=== PATIENT | male | born 1990 | race Caucasian/White ===

== ENCOUNTER 2019-10-21 12:54 | Inpatient (IN) | payer MEDICAID, OTHER ==
[~2019-10-21] VITALS: Ht 170.2 cm; Wt 61.7 kg
[~2019-10-21 12:54] MED LIST: HUMSLIDE SUBQ; INSU100S22 SUBQ
--- NOTE | 2019-10-21 12:54 | NUR ---
Patient BIBA BLS, transferred to bed 10. RN evaluating patient at bedside.
[2019-10-21 13:03] VITALS: BP 131/78
--- NOTE | 2019-10-21 13:15 | NUR ---
PT TO ED VIA EMS FOR C/O GENERALIZED WEAKNESS, CHILLS, AND ABDOMINAL DISTENTION. ABD IS LARGE, FIRM, AND TENDER TO TOUCH. BOWEL SOUNDS ACTIVE X 4. SKIN IS WARM TO TOUCH. DENIES NAUSEA AND VOMITTING. MD MADE AWARE OF PATIENT STATUS.
--- NOTE | 2019-10-21 13:16 | NUR ---
PMH- LIVER CIRRHOSIS, DM, LEGALLY BLIND BOTH EYES PER PATIENT Addendum: 10/21/19 at 1350 by ARABELLA RIGHT EYE BLINDNESS
--- NOTE | 2019-10-21 13:17 | NUR ---
PT RECIEVED PARACETNESIS X LAST THURSDAY AND APPROX 2 L REMOVED PER SISTER. RECEIVES PROCEDURE EVERY 3-4 WEEKS
--- NOTE | 2019-10-21 13:29 | NUR ---
REPORT TO GERARDO SALDIVAR FOR CONTINUATION OF CARE.
[2019-10-21] MEDS ORDERED: ACETAMINOPHEN 325 MG TAB PO ONE (13:30)
[2019-10-21] MEDS ORDERED: PIPERACILLIN/TAZOBACTAM 3.375 GM in DEXTROSE 5% 50 ML IV ONE (13:30)
--- NOTE | 2019-10-21 13:30 | NUR ---
HRS 130 AT THIS TIME, RR 43
--- NOTE | 2019-10-21 13:33 | NUR ---
XRAY AT BEDSIDE
[2019-10-21] MEDS ORDERED: DEXTROSE 5% 50 ML IV ONE (13:36)
[2019-10-21] MEDS ORDERED: PIPERACILLIN/TAZOBACTAM 3.375 GM VIAL IV ONE (13:36)
--- NOTE | 2019-10-21 13:45 | NUR ---
URINE COLLECTED Addendum: 10/21/19 at 1347 by MEDAD URINE COLORED BROWN
--- NOTE | 2019-10-21 13:46 | NUR ---
LAB AT BEDSIDE
--- NOTE | 2019-10-21 13:51 | NUR ---
EMT AT BEDSIDE FOR EKG
--- NOTE | 2019-10-21 14:03 | NUR ---
ZOSYN IVBP STARTED
[2019-10-21 14:05] LABS: HEMATOCRIT 24.2 % (36-52); HEMOGLOBIN 8.1 g/dL (12.0-18.0); MEAN CORPUSCULAR HEMOGLOBIN 33 pg (27-31); MEAN CORPUSCULAR HGB CONC 33 g/dL (33-37); MEAN CORPUSCULAR VOLUME 98.9 fL (80-94); PLATELET COUNT (AUTO) 100 K/uL (140-450); RED BLOOD CELL COUNT(AUTO) 2.45 MIL/uL (4.20-6.10); RED CELL DISTRIBUTION WIDTH 14.6 % (11.6-13.7); WHITE BLOOD COUNT (AUTO) 6.6 K/uL (4.8-10.8)
[2019-10-21] MEDS ORDERED: VANCOMYCIN 1,000 MG in DEXTROSE 5% 250 ML IV ONE (14:05)
[2019-10-21 14:06] LABS: APPEARANCE,URINE SL CLOUDY (CLEAR); BILIRUBIN,URINE 3+ (NEGATIVE); BLOOD, URINE 3+ (NEGATIVE); COLOR,URINE DARK YELLOW (YELLOW); LEUKOCYTE ESTERASE ,URINE NEGATIVE (NEGATIVE); NITRITE, URINE POSITIVE (NEGATIVE); UGLUCOSE TRACE (NEGATIVE)
[2019-10-21 14:20] LABS: PROTHROMBIN TIME 12.2 secs (10.8-13.4)
--- NOTE | 2019-10-21 14:24 | NUR ---
PT FAMILY AT BEDSIDE.
[2019-10-21 14:27] LABS: CREATINE KINASE MB 0.3 ng/mL (0-3.6)
[2019-10-21] MEDS ORDERED: VANCOMYCIN 1,000 MG VIAL ONE (14:29)
[2019-10-21 14:31] LABS: RBC,URINE 11-20 (MOD) /HPF (0-5); WBC,URINE NONE SEEN /HPF (0-5)
[2019-10-21 14:32] LABS: FINE GRANULAR CASTS,URINE 0-10 /LPF (None Seen)
[2019-10-21 14:40] LABS: EOSINOPHILS % (MANUAL) 2 % (0-4); LYMPHOCYTES % (MANUAL) 1 % (20-46); MONOCYTES % (MANUAL) 1 % (5-12)
--- NOTE | 2019-10-21 14:43 | NUR ---
VANCO IVPB STARTED
[2019-10-21 14:44] LABS: ANION GAP 10.8 (8-16); POTASSIUM 3.8 mmol/L (3.5-5.1)
[2019-10-21 14:45] LABS: CREATININE 0.7 mg/dL (0.7-1.3); TOTAL BILIRUBIN 2.6 mg/dL (0.0-1.0)
[2019-10-21 14:46] LABS: ALBUMIN 1.4 g/dL (3.4-5.0)
--- NOTE | 2019-10-21 14:47 | NUR ---
Dr. Lentz is evaluating the patient at bedside.
--- NOTE | 2019-10-21 14:48 | NUR ---
ORAL TEMP 100.3 ,DR ARAUJO AT BEDSIDE.
--- NOTE | 2019-10-21 15:02 | NUR ---
Patient taken to CT scan via gurney by [facility].
--- NOTE | 2019-10-21 15:05 | NUR ---
PT WENT FOR CTSCAN VIA [employer].
--- NOTE | 2019-10-21 15:13 | NUR ---
Patient returned from CT scan. RN re-evaluating patient at bedside.
--- NOTE | 2019-10-21 15:15 | NUR ---
pt back from [facility] via [employer].
--- NOTE | 2019-10-21 15:58 | NUR ---
NADRS .PAIN LEVEL AT 4/10.
[2019-10-21] MEDS ORDERED: ONDANSETRON 4 MG/2 ML VIAL IM/IVP PRN (16:30)
[2019-10-21] MEDS ORDERED: HYDROcodone/APAP 5/325 MG 1 TAB TAB PO PRN (16:30)
[2019-10-21] MEDS ORDERED: DOCUSATE SODIUM 100 MG GELCAP PO PRN (16:30)
[2019-10-21] MEDS ORDERED: ACETAMINOPHEN 325 MG TAB PO PRN (16:30)
[2019-10-21] MEDS ORDERED: MORPHINE SULFATE 2 MG/ML SYR IVP PRN (16:30)
[2019-10-21] MEDS ORDERED: LORazepam 2 MG/ML VIAL IM/IVP PRN (16:30)
--- NOTE | 2019-10-21 16:46 | NUR ---
Yady march in EDM - 10/21/19 at [address] Gomez and tech at bedside for central line insertion.
--- NOTE | 2019-10-21 16:57 | NUR ---
pt nsr, afebrile at this time. pt alert and awake, family bedside
[2019-10-21 17:20] LABS: LIPASE 161 U/L (73-393); MAGNESIUM 1.5 mg/dL (1.8-2.4); PHOSPHORUS 2.4 mg/dL (2.5-4.9)
--- NOTE | 2019-10-21 17:40 | NUR ---
Patient will be admitted to care of DR URIARTE. Admited to TELE. Will go to room 108B. Belongings list completed. Report to PRINCESS CARRILLO. FAMILY TRANSPORTED WITH PT COVERED BELONGINGS LIST WITH PRINCESS CARRILLO
--- NOTE | 2019-10-21 17:40 | NUR ---
RECEIVED PATIENT FROM BRITTNI SALDIVAR RN VIA [email or web address]. PATIENT IS AWAKE AND ALERT. PATIENT IS LEGALLY BLIND. PER SISTER, PATIENT CAN SEE ONLY SHADOWS IN LEFT EYE. NPO EXCEPT MEDS. SKIN IS INTACT. IV ON LEFT FOREARM 20 G, SALINE LOCK. LOWER LEG SLIGHT EDEMA PRESENT. BP 114/69, RESP 18 EVEN AND UNLABORED, ON ROOM AIR. TEMP 98.6, ORAL. O2SAT 97%, HR 99 BMP. PATIENT DENIES ANY ABDOMINAL PAIN. AMBULATORY WITH GUIDANCE/ASSIST. FAMILY AT BEDSIDE. CALL LIGHT IS WITHIN REACH. BED IN LOW POSITION. BED ALARM IN PLACE.
[2019-10-21] MEDS ORDERED: LACT10SO1 PO (17:51)
[2019-10-21] MEDS ORDERED: FURO-572 PO (17:51)
[2019-10-21] MEDS ORDERED: MAGN200T5 PO (17:51)
[2019-10-21 17:56] LABS: BARBITURATE, URINE NEG. ng/ml (NEG <=200); BENZODIAZEPINE, URINE NEG. ng/mL (NEG <=200); CANNABINOID, URINE NEG. ng/mL (NEG <=50); COCAINE, URINE NEG. ng/mL (NEG <=300); OPIATE, URINE NEG. ng/mL (NEG <=2000); PHENCYCLIDINE SCREEN,URINE NEG. ng/mL (NEG <=25)
[2019-10-21 17:58] LABS: IRON, SERUM 21 ug/dl (50-175); TOTAL IRON BINDING CAPACITY 103 ug/dl (250-450)
[2019-10-21] MEDS ORDERED: DEXTROSE 50% 50 ML SYR IVP PRN (18:30)
--- NOTE | 2019-10-21 18:44 | NUR ---
ADMINISTERED MAG SULFATE AND NEUTRA-PHOS. EXPLAINED TO PATIENT INDICATIONS AND SIDE EFFECTS. VERBALIZED UNDERSTANDING. WILL CONTINUE TO MONITOR.
[2019-10-21] MEDS ORDERED: SODIUM PHOS / POTASSIUM PHOS 1 PKT PDR PO SCH (18:45)
[2019-10-21] MEDS ORDERED: LACTULOSE 20 GM/30 ML UDC PO SCH (19:00)
[2019-10-21] MEDS ORDERED: MAG SULF 2000 MG/WATER PREMIX 50 ML IV SCH (19:00)
[2019-10-21 19:15] VITALS: BP 100/60
--- NOTE | 2019-10-21 19:15 | NUR ---
RECIEVED PT [id number] , NID , WITH LARGE BLOATED ADB. , WITH PITTING EDEMA ON LEFT LEG = 2 , ON RA , WITH VERY MILD ABDL. PAIN THIS TIME , ON SL INTACT AND PATENT , ATE FOOD TOLERATED .MOTHER AT BEDSIDE , USES URINAL . PT IS LEGALLY BLIND ON RIGHT EYE - ON FALL/ SAFETY PRECAUTION PROTOCOL - CALL LIGHT WITHIN REACH - BED ALARM ON . PLAN OF CARE DISCUSSED AND VERBALIZED UNDERSTANDING . WILL CONT. TO MONITOR.
--- NOTE | 2019-10-21 19:15 | NUR ---
ENDORSED PATIENT TO FUSION ANALYST NURSE FOR CONTINUITY OF CARE. PATIENT IS IN STABLE CONDITION.
[2019-10-21] MEDS: BLOOD GLUCOSE MONITORING 1 DEV DEV FS SCH (21:27)
[2019-10-21] MEDS: LACTULOSE 20 GM/30 ML UDC PO SCH (21:27)
[2019-10-21] MEDS: INSULIN LISPRO SLIDING SCALE 100 UNITS/ML VIAL SUBQ PRN (21:29)
--- NOTE | 2019-10-21 21:35 | NUR ---
S/E BY DR. SANTAMARIA - HE ASSESED THE EDEMA OF THE LEFT LEG- HE SAID THE SCD WILL AGGRAVATES THE EDEMA IF IT IS PUT ON THE LEG - PENDING THE APPLICATION OF THE SCD.
[2019-10-21] MEDS ORDERED: VANCOMYCIN PER PHARMACY MC PRN (22:20)
--- NOTE | 2019-10-21 22:37 | NUR ---
PLT 100 - DUE HEPARIN SQ 5,000 WILL BE GIVEN ORDERED BY DR. SANTAMARIA. HE SAID GIVE HEPARIN SQ .
[2019-10-22] VITALS: BP 100/63
--- NOTE | 2019-10-22 | NUR ---
MADE ROUNDS - NO SIGNS OF ANY ACUTE DISTRESS NOTED AT THIS TIME - CALL LIGHT WITHIN REACH.
[2019-10-22] MEDS: PIPERACILLIN/TAZOBACTAM 3.375 GM in DEXTROSE 5% 50 ML IV SCH ×2 (00:19→06:12)
--- NOTE | 2019-10-22 02:00 | NUR ---
SLEEPING - CHEST RISE AND FALL EQUALLY.
[2019-10-22 04:00] VITALS: BP 117/72
--- NOTE | 2019-10-22 04:00 | NUR ---
MADE ROUNDS, NO S/SX OF ACUTE DISTRESS NOTED AT THIS TIME . CALL LIGHT WITHIN REACH.
--- NOTE | 2019-10-22 06:00 | NUR ---
MADE ROUNDS - HAD BOWEL MOVEMENT - 2X SEMI SOLID - NO COMPLAIN MADE AT THIS TIME . CALL LIGHT WITHIN REACH.
[2019-10-22] MEDS: BLOOD GLUCOSE MONITORING 1 DEV DEV FS SCH ×4 (06:12→21:00)
[2019-10-22 06:27] LABS: EOSINOPHILS # (AUTO) 0.2 K/uL (0-0.4); EOSINOPHILS % (AUTO) 4.3 % (0.0-4.0); HEMATOCRIT 22.6 % (36-52); HEMOGLOBIN 7.6 g/dL (12.0-18.0); LYMPHOCYTES # (AUTO) 0.4 K/uL (2.0-11.5); LYMPHOCYTES % (AUTO) 8.7 % (20.5-51.1); MEAN CORPUSCULAR HEMOGLOBIN 33 pg (27-31); MEAN CORPUSCULAR HGB CONC 34 g/dL (33-37); MEAN CORPUSCULAR VOLUME 99.1 fL (80-94); MONOCYTES # (AUTO) 0.3 K/uL (0.8-1.0); MONOCYTES % (AUTO) 6.4 % (1.7-9.3); NEUTROPHILS # (AUTO) 3.9 K/uL (1.8-7.7); NEUTROPHILS % (AUTO) 79.6 % (42.2-75.2); PLATELET COUNT (AUTO) 83 K/uL (140-450); RED BLOOD CELL COUNT(AUTO) 2.29 MIL/uL (4.20-6.10); RED CELL DISTRIBUTION WIDTH 14.3 % (11.6-13.7); WHITE BLOOD COUNT (AUTO) 4.8 K/uL (4.8-10.8)
[2019-10-22 06:36] LABS: ANION GAP 12.3 (8-16); CARBON DIOXIDE 23.3 mmol/L (21-32); CREATININE 0.9 mg/dL (0.7-1.3); POTASSIUM 3.6 mmol/L (3.5-5.1)
[2019-10-22 07:05] LABS: MAGNESIUM 1.8 mg/dL (1.8-2.4); PHOSPHORUS 2.6 mg/dL (2.5-4.9)
--- NOTE | 2019-10-22 07:10 | NUR ---
ENDORSED TO AM SHIFT FOR CONT. OF CARE , WITH STABLE CONDITION.
--- NOTE | 2019-10-22 07:11 | NUR ---
RECEIVED REPORT FROM JIG BUILDER NURSE FOR CONTINUITY OF CARE. PT IN STABLE CONDITION. RESPIRATIONS EVEN AND UNLABORED, ROOM AIR. IV INTACT AND PATENT. SAFETY MEASURES IN PLACE. BED IN LOW POSITION. BED ALARM ON. CALL LIGHT AT BEDSIDE. WILL CONTINUE TO MONITOR.
[2019-10-22 08:00] VITALS: BP 112/77
[2019-10-22] MEDS: LACTULOSE 20 GM/30 ML UDC PO SCH ×2 (09:00→23:14)
[2019-10-22] MEDS ORDERED: ALBUTEROL SULFATE/IPRATROPIU 3 ML SOL IH PRN (09:20)
[2019-10-22] MEDS: SPIRONOLACTONE 50 MG TAB PO SCH (09:43)
--- NOTE | 2019-10-22 09:43 | NUR ---
GAVE ORDERED DUE MEDICATIONS AT THIS TIME. PT TOLERATED WELL. BED IN LOW POSITION. BED ALARM ON. CALL LIGHT AT BEDSIDE. WILL CONTINUE TO MONITOR.
[2019-10-22] MEDS ORDERED: VANCOMYCIN 1,000 MG in DEXTROSE 5% 250 ML IV SCH (10:00)
--- NOTE | 2019-10-22 11:33 | NUR ---
PT TALKING WITH FAMILY AT BEDSIDE. PT IN STABLE CONDITION. BED IN LOW POSITION. BED ALARM ON. CALL LIGHT AT BEDSIDE. WILL CONTINUE TO MONITOR.
[2019-10-22] MEDS ORDERED: PROP10TA28 PO (11:35)
[2019-10-22] MEDS ORDERED: URSO300C14 PO (11:35)
[2019-10-22] MEDS ORDERED: SPIR50TA PO (11:35)
[2019-10-22] MEDS ORDERED: FURO-570 PO (11:35)
[2019-10-22] MEDS ORDERED: OMEP20TC12 PO (11:35)
[2019-10-22] MEDS ORDERED: AZITHROMYCIN SUSP 200 MG/5 ML PO SCH (11:40)
[2019-10-22 12:00] VITALS: BP 109/63
--- NOTE | 2019-10-22 12:02 | NUR ---
WHITNEY BARRY AT BEDSIDE FOR ASSESSMENT. PT IN STABLE CONDITION. BED IN LOW POSITION. BED ALARM ON. CALL LIGHT AT BEDSIDE. WILL CONTINUE TO MONITOR.
[2019-10-22] MEDS ORDERED: INSU100S22 SUBQ (12:43)
--- NOTE | 2019-10-22 13:01 | NUR ---
FNS FOR DIET LEMON TORRES MARTINEZ SODA PER PT REQUEST.
[2019-10-22] MEDS ORDERED: AZITHROMYCIN 250 MG TAB PO SCH (13:30)
--- NOTE | 2019-10-22 14:02 | NUR ---
PT WATCHING TV IN STABLE CONDITION. PT IN STABLE CONDITION. BED IN LOW POSITION. BED ALARM ON. CALL LIGHT AT BEDSIDE. WILL CONTINUE TO MONITOR.
[2019-10-22 16:00] VITALS: BP 114/70
--- NOTE | 2019-10-22 16:03 | NUR ---
PT SLEEP AT THIS TIME. RESPIRATIONS EVEN AND UNLABORED. BED IN LOW POSITION. CALL LIGHT AT BEDSIDE.
--- NOTE | 2019-10-22 19:21 | NUR ---
GAVE REPORT TO PROSTHODONTIST/EDUCATOR NURSE FOR CONTINUITY OF CARE. PT IN STABLE CONDITION.
--- NOTE | 2019-10-22 19:22 | NUR ---
RECEIVED PT FROM DEBBIE CARRILLO PT IS AAOX4 LEGALLLY BLIND , ASCITIS, EDEMA ON BLE HL ON LEFT WRIST PATENT RELATIVE AT BE SIDE NOT PAIN INITIAL ASSESSMENT DONE
[2019-10-22 20:00] VITALS: BP 129/77
[2019-10-22] MEDS ORDERED: URSODIOL 300 MG CAP PO SCH (21:00)
--- NOTE | 2019-10-22 22:00 | NUR ---
BLOOD SUGAR TEST 207 COVERAGE WITH 4 UNITS SUBQ HUMALOG FOLLOW PROTOCOL
[2019-10-22] MEDS: FUROSEMIDE 20 MG/2 ML VIAL IVP SCH (22:16)
[2019-10-22] MEDS: URSODIOL 300 MG CAP PO SCH (22:19)
[2019-10-22] MEDS: PROPRANOLOL 20 MG TAB PO SCH (22:31)
[2019-10-22] MEDS: INSULIN LISPRO SLIDING SCALE 100 UNITS/ML VIAL SUBQ PRN (23:11)
[2019-10-23] VITALS: BP 110/70
--- NOTE | 2019-10-23 00:42 | NUR ---
PT SLEEPING QUIET NOT DISTRESS NOTED ON TELEMETRY SR
[2019-10-23 04:00] VITALS: BP 116/50
--- NOTE | 2019-10-23 04:00 | NUR ---
SPONGE BATH GIVEN LINEN CHANGED REPOSITIONED PT VOIDING WELL NOT DISTRESS NOTED ON TELMETRY SSR
[2019-10-23 05:40] LABS: BASOPHILS % (AUTO) 0.8 % (0.0-2.0); EOSINOPHILS # (AUTO) 0.3 K/uL (0-0.4); EOSINOPHILS % (AUTO) 5.1 % (0.0-4.0); HEMATOCRIT 24.1 % (36-52); HEMOGLOBIN 8.1 g/dL (12.0-18.0); LYMPHOCYTES # (AUTO) 0.5 K/uL (2.0-11.5); LYMPHOCYTES % (AUTO) 9.4 % (20.5-51.1); MEAN CORPUSCULAR HEMOGLOBIN 34 pg (27-31); MEAN CORPUSCULAR HGB CONC 34 g/dL (33-37); MEAN CORPUSCULAR VOLUME 99.6 fL (80-94); MONOCYTES # (AUTO) 0.4 K/uL (0.8-1.0); MONOCYTES % (AUTO) 8.5 % (1.7-9.3); NEUTROPHILS % (AUTO) 76.2 % (42.2-75.2); PLATELET COUNT (AUTO) 102 K/uL (140-450); RED BLOOD CELL COUNT(AUTO) 2.41 MIL/uL (4.20-6.10); RED CELL DISTRIBUTION WIDTH 14.6 % (11.6-13.7); WHITE BLOOD COUNT (AUTO) 5.3 K/uL (4.8-10.8)
--- NOTE | 2019-10-23 06:31 | NUR ---
PATIENT HAS BEEN SCREENED AND CATEGORIZED MODERATE NUTRITION RISK. PATIENT WILL BE SEEN WITHIN 3-5 DAYS OF ADMISSION. 10/24/19-10/26/19 SIDNEY MARIANO MS, RDN
[2019-10-23 06:48] LABS: MAGNESIUM 1.4 mg/dL (1.8-2.4); PHOSPHORUS 2.8 mg/dL (2.5-4.9)
[2019-10-23 07:18] LABS: ANION GAP 13.3 (8-16); CARBON DIOXIDE 22.1 mmol/L (21-32); CREATININE 0.8 mg/dL (0.7-1.3); POTASSIUM 3.4 mmol/L (3.5-5.1)
[2019-10-23] MEDS: BLOOD GLUCOSE MONITORING 1 DEV DEV FS SCH ×2 (07:37→12:09)
--- NOTE | 2019-10-23 07:39 | NUR ---
PT IS ENDORSED TO DEBBIE CARRILLO FOR CONTINUE OF CARE
--- NOTE | 2019-10-23 07:40 | NUR ---
RECEIVED REPORT FROM DRUM BARKER OPERATOR WILLIAM FOR CONTINUITY OF CARE. PT IN STABLE CONDITION. RESPIRATIONS EVEN AND UNLABORED, ROOM AIR. IV INTACT AND PATENT. SAFETY MEASURES IN PLACE. BED IN LOW POSITION. BED ALARM ON. CALL LIGHT AT BEDSIDE. WILL CONTINUE TO MONITOR.
[2019-10-23] MEDS ORDERED: POTASSIUM CHLORIDE 40 MEQ, LIDOCAINE MPF 1% 25 MG in NACL 0.9% 250 ML IV ONE (07:45)
[2019-10-23 08:00] VITALS: BP 115/69
[2019-10-23] MEDS ORDERED: MAG SULF 2000 MG/WATER PREMIX 50 ML IV ONE ×2 (08:00→11:25)
--- NOTE | 2019-10-23 08:40 | NUR ---
CONSENT SIGNED AND IV 20G RIGHT AC PLACED FOR CT ABD/PEL WITH CONTRAST. PT TOLERATED WELL.
[2019-10-23] MEDS: LACTULOSE 20 GM/30 ML UDC PO SCH (09:00)
[2019-10-23] MEDS ORDERED: PANTOPRAZOLE 40 MG INJ VIAL IVP SCH (09:00)
[2019-10-23] MEDS ORDERED: AZITHROMYCIN 250 MG TAB PO SCH (09:00)
--- NOTE | 2019-10-23 09:00 | NUR ---
PT OFF UNIT FOR CT ABD/PEL. PT IN STABLE CONDITION.
--- NOTE | 2019-10-23 09:30 | NUR ---
PT BACK ON UNIT AFTER ABD/PEL CT WITH CONTRAST. PT TOLERATED WELL. WILL CONTINUE TO MONITOR.
--- NOTE | 2019-10-23 11:10 | NUR ---
REMOVED IV RIGHT AC 20G PER PT REQUEST DUE TO IRRITATION. NO INJURY AT SITE NOTED. LUMEN INTACT UPON REMOVAL.
[2019-10-23] MEDS ORDERED: [UNRECOGNIZED DRUG - CODE] PO (11:52)
[2019-10-23] MEDS ORDERED: LACT-81 PO (11:52)
[2019-10-23] MEDS ORDERED: AZIT250T3 PO (11:52)
[2019-10-23 12:00] VITALS: BP 116/77
[2019-10-23] MEDS ORDERED: POTASSIUM CHLORIDE 10 MEQ TABER PO SCH (12:00)
[2019-10-23] MEDS: FUROSEMIDE 20 MG/2 ML VIAL IVP SCH (12:06)
[2019-10-23] MEDS: URSODIOL 300 MG CAP PO SCH (12:06)
[2019-10-23] MEDS: PROPRANOLOL 20 MG TAB PO SCH (12:07)
[2019-10-23] MEDS: SPIRONOLACTONE 50 MG TAB PO SCH (12:07)
--- NOTE | 2019-10-23 12:10 | NUR ---
HEPARIN HELD DUE TO PLATELETS 102.
[2019-10-23] MEDS ORDERED: cefTRIAXone 2,000 MG in DEXTROSE 5% 100 ML IV SCH (13:00)
--- NOTE | 2019-10-23 15:55 | NUR ---
GAVE DISCHARGE INSTRUCTIONS TO PT AND MOTHER AT THIS TIME. PT AND MOTHER VERBALIZED UNDERSTANDING OF INSTRUCTIONS. PT REQUESTED MOTHER SIGN PAPERWORK DUE TO PT BEING BLIND. IV REMOVED, LUMEN INTACT. ID BAND REMOVED. PT WHEELED TO LOBBY IN WHEELCHAIR WHERE FAMILY WAS WAITING WITH VEHICLE. PT IN SABLE CONDITION.
== END 2019-10-23 15:55 | disposition home or self-care (01) | DRG 720 ==
LOC: MED 12:54 → MTU 16:27
PROVIDERS: ADMIT General Practice; ATTEND General Practice
DX: A41.9 Sepsis, unspecified organism (principal); E43 Unspecified severe protein-calorie malnutrition; J18.9 Pneumonia, unspecified organism; K65.2 Spontaneous bacterial peritonitis; E72.20 Disorder of urea cycle metabolism, unspecified; D68.59 Other primary thrombophilia; E83.39 Other disorders of phosphorus metabolism; D69.59 Other secondary thrombocytopenia; E83.42 Hypomagnesemia; K76.6 Portal hypertension; K74.69 Other cirrhosis of liver; J91.8 Pleural effusion in other conditions classified elsewhere; R18.8 Other ascites; E11.9 Type 2 diabetes mellitus without complications; H54.8 Legal blindness, as defined in USA; E80.6 Other disorders of bilirubin metabolism; D63.8 Anemia in other chronic diseases classified elsewhere; E83.51 Hypocalcemia; J98.11 Atelectasis; K75.4 Autoimmune hepatitis; Z79.899 Other long term (current) drug therapy; Z79.4 Long term (current) use of insulin; Z68.21 Body mass index [BMI] 21.0-21.9, adult
CPT/HCPCS: 36415; 71045; 76705; 80048; 80053; 80305; 81001; 82140; 82550; 82553; 82607; 82728; 82746; 83036; 83540; 83605; 83690; 83735; 83880; 84100; 84443; 84484; 85025; 85045; 85610; 85730; 87040; 87081; 87086; 93005; 96365; 96366; 96367; 99285; C9113; G0482; J0696; J1644; J1815; J1940; J2001; J2543; J3370; J3475; J3480; J7030; J7060; Q0092; Q9967